=== PATIENT | female | born 1955 | race Caucasian/White ===

== ENCOUNTER → 2018-07-26 | Outpatient (REF) | payer OTHER ==
[~2018-07-26] MED LIST: BENADRYL 50MG C50 MG PO; BUSPIRONE5 MG PO; CIPROFLOXACN500 MG PO; CITALOPRAM10 MG PO; LORTAB 7.57.5 MG PO; METRONIDAZOL500 MG PO; PREDNISONE20 MG PO; TRAMADOL HCL50 MG PO
[2018-07-26 14:05] LABS: HEMATOCRIT 39.2 % (37.0-47.0); HEMOGLOBIN 13.5 g/dl (12.0-16.0); IMMATURE GRANULOCYTES 0.3 % (0.0-5.0); MEAN CELL VOLUME 92.5 fL CALC (80.0-100.0); MEAN CORPUSCULAR HGB 31.8 pG CALC (26.0-32.0); MEAN CORPUSCULAR HGB CONC 34.4 g/L CALC (32.0-36.0); NEUT# 3.45 thou/uL (2.00-7.15); RED BLOOD COUNT 4.24 mill/uL (4.20-5.60); RED CELL DISTRI WIDTH 12.4 % (11.5-15.5)
[2018-07-26 14:21] LABS: ALBUMIN 3.8 g/dL (3.2-5.0); ALKALINE PHOSPHATASE 76 u/l (38-126); ANION GAP 10 (6-22 (CALC)); BILIRUBIN, TOTAL 0.4 mg/dL (0.0-1.4); BUN 15 mg/dL (8-23); BUN/CREATININE RATIO 16 (12-20 (CALC)); CALCULATED LDLCHOLESTEROL 50 mg/dL (62-129 (CALC)); CARBON DIOXIDE 27 mmol/l (22-30); CHLORIDE 110 mmol/l (95-108); CHOLESTEROL HDL RATIO 2.4 (<4.4 (CALC)); GFR 56 ML/MIN (>=60 (CALC)); GFR FOR AFR.AMER. > 60 ML/MIN (>=60 (CALC)); HDL CHOLESTEROL 64 mg/dL (>=40); SGOT/AST 23 u/l (9-36); SODIUM 142 mmol/l (137-146); TOTAL CHOLESTEROL 154 mg/dl (0-199); TOTAL PROTEIN 6.5 g/dL (6.3-8.2); TOTAL TRIGLYCERIDES 199 mg/dl (30-149); VLDL CHOLESTROL 40 mg/dl (1-41 (CALC))
[2018-07-26 14:50] LABS: TSH, 3RD GENERATION 0.98 uIU/mL (0.47 - 4.68)
== END | disposition home or self-care (01) ==
LOC: LAB 13:11
PROVIDERS: ATTEND Family Medicine
DX: R63.5 Abnormal weight gain (principal); R73.01 Impaired fasting glucose

== ENCOUNTER 2022-01-05 11:35 | Observation (INO) | payer MEDICARE, MEDICAID ==
[2022-01-05] VITALS (11 sets, daily range): BP systolic 121–154; BP diastolic 73–94
[~2022-01-05] VITALS: Ht 172.7 cm; Wt 62.0 kg
[2022-01-05 12:13] LABS: HEMATOCRIT 42.9 % (37.0-47.0); HEMOGLOBIN 14.3 g/dl (12.0-16.0); IMMATURE GRANULOCYTES 0.2 % (0.0-5.0); MEAN CELL VOLUME 93.5 fL CALC (80.0-100.0); MEAN CORPUSCULAR HGB 31.2 pG CALC (26.0-32.0); MEAN CORPUSCULAR HGB CONC 33.3 g/dL CAL (32.0-36.0); NEUT# 3.19 thou/uL (2.00-7.15); RED BLOOD COUNT 4.59 mill/uL (4.20-5.60); RED CELL DISTRI WIDTH 12.7 % (11.5-15.5)
[2022-01-05 12:28] LABS: ALBUMIN 4.2 g/dL (3.2-5.0); ALKALINE PHOSPHATASE 79 u/l (38-126); ANION GAP 12 (6-22 (CALC)); BILIRUBIN, TOTAL 0.4 mg/dL (0.0-1.4); BUN 17 mg/dL (8-23); BUN/CREATININE RATIO 20 (12-20 (CALC)); CARBON DIOXIDE 26 mmol/l (22-30); CHLORIDE 107 mmol/l (95-108); CREATININE 0.8 mg/dL (0.5-1.0); GFR > 60 ML/MIN (>=60 (CALC)); GFR FOR AFR.AMER. > 60 ML/MIN (>=60 (CALC)); POTASSIUM 3.7 mmol/l (3.5-5.1); SGOT/AST 25 u/l (9-36); SODIUM 141 mmol/l (137-146); TOTAL PROTEIN 7.3 g/dL (6.3-8.2)
[2022-01-05] MEDS ORDERED: B-1250 MCG PO (14:34)
--- NOTE | 2022-01-05 16:47 | NUR ---
Reassessment of patient completed. No distress noted.
--- NOTE | 2022-01-05 17:54 | NUR ---
REPORT GIVEN TO NELI DE JESUS
--- NOTE | 2022-01-05 18:00 | NUR ---
GOT REPORT FROM ED NURSE. ASSESSED PATIENT. AOX4, DENIES ANY PAIN OR SOB AT THIS TIME. ORIENTATED PATIENT TO ROOM.
--- NOTE | 2022-01-05 20:15 | NUR ---
PATIENT ALERT AND ORIENTED. ABLE TO MAKE NEEDS KNOWN. ASSESSMENT COMPLETE. PATIENT DENIES PAIN. NO DISTRESS NOTED. PATIENT MENTIONED BLURRED VISION TO DAY SHIFT BUT FOR ME STATED, ''I NEED READING GLASSES''. PATIENT ALSO STATED, ''I GET THIS SMALL PAIN RIGHT HERE SOMETIMES, BUT I THINK ITS MY ANXIETY BECAUSE I GET THAT''. NO ANXIETY OBSERVED AT THIS TIME. SNACK PROVIDED TO PATIENT BY R D ENGINEER. BEVERAGES PROVIDED TO PATIENT BY THIS NURSE. CALL LIGHT AND BELONGINGS REMAIN BY PATIENT.
[2022-01-06] VITALS: BP 100/70
--- NOTE | 2022-01-06 00:20 | NUR ---
PATIENT RESTING IN BED ON HER RIGHT SIDE. NO COMPLAINTS OF PAIN. NO SIGNS OF DISTRESS. CALL LIGHT AND BELONGINGS REMAIN IN REACH.
[2022-01-06 03:03] VITALS: BP 103/67
--- NOTE | 2022-01-06 04:35 | NUR ---
PATIENT RESTING IN BED ON HER BACK. NO COMPLAINTS OF CHEST PAIN. NO SIGNS OF DISTRESS. VS STABLE. NO COMPLAINTS OF BLURRED VISION OR DIZZINESS. CALL LIGHT AND BELONGINGS REMAIN IN REACH.
[2022-01-06 06:24] LABS: HEMOGLOBIN 14.2 g/dl (12.0-16.0); MEAN CELL VOLUME 93.7 fL CALC (80.0-100.0); MEAN CORPUSCULAR HGB 30.9 pG CALC (26.0-32.0); RED BLOOD COUNT 4.59 mill/uL (4.20-5.60); RED CELL DISTRI WIDTH 12.6 % (11.5-15.5)
[2022-01-06 06:44] LABS: ANION GAP 9 (6-22 (CALC)); BUN 13 mg/dL (8-23); BUN/CREATININE RATIO 17 (12-20 (CALC)); CALCULATED LDLCHOLESTEROL 62 mg/dL (62-129 (CALC)); CARBON DIOXIDE 24 mmol/l (22-30); CHLORIDE 111 mmol/l (95-108); CHOLESTEROL HDL RATIO 2.1 (<4.4 (CALC)); CREATININE 0.8 mg/dL (0.5-1.0); GFR > 60 ML/MIN (>=60 (CALC)); GFR FOR AFR.AMER. > 60 ML/MIN (>=60 (CALC)); HDL CHOLESTEROL 77 mg/dL (>=40); MAGNESIUM 2.1 mg/dL (1.6-2.3); SODIUM 140 mmol/l (137-146); TOTAL CHOLESTEROL 161 mg/dl (0-199); TOTAL TRIGLYCERIDES 109 mg/dl (30-149); VLDL CHOLESTROL 22 mg/dl (1-41 (CALC))
--- NOTE | 2022-01-06 07:00 | NUR ---
RECEIVE REPORT FROM JESSICA HELLER.
--- NOTE | 2022-01-06 09:34 | NUR ---
PATIENT ALERT AND ORIENTED X 3. NO REFER PAIN AT THIS TIME. EDUCATES PATIENT ABOUD MEDICATIONS AND NURSING PLAN FOR TODAY.PATIENT REFER UNDERSTAND.
[2022-01-06 11:20] VITALS: BP 124/84
--- NOTE | 2022-01-06 13:06 | NUR ---
PATIENT DISCHARGED. STABLE
== END 2022-01-06 13:04 | disposition home or self-care (01) ==
LOC: ED 11:35 → ED-I 12:34 → ED 12:34 → ED-I 12:50 → ED 14:02 → MS2 14:03
PROVIDERS: Family Medicine; ADMIT Hospitalist; ATTEND Hospitalist
DX: R07.9 Chest pain, unspecified (principal); F41.9 Anxiety disorder, unspecified; F32.A Depression, unspecified; F17.200 Nicotine dependence, unspecified, uncomplicated; Z20.822 Contact with and (suspected) exposure to COVID-19